=== PATIENT | female | born 1950 | race Hispanic/Latino ===

== ENCOUNTER 2018-03-09 07:30 | Day surgery (SDC) | payer OTHER ==
[~2018-03-09] VITALS: Ht 152.4 cm; Wt 58.1 kg
[~2018-03-09 07:30] MED LIST: ALPR0.255 PO; CARB-38 PO; ENTA200T5 PO; GABA-529 PO; PARO-37 PO; PRAV80TA21 PO; ROPI1TAB11 PO; SODIUM CHLORIDE 0.9% 1000ML 1,000 ML IV ONE; diclofenac gel; metoprolol PO
[2018-03-09 07:46] VITALS: BP 169/103
[2018-03-09] MEDS ORDERED: CARB-38 PO (08:24)
[2018-03-09] MEDS ORDERED: TEMA30CA5 PO (08:24)
[2018-03-09] MEDS ORDERED: LOSA50TA25 PO (08:24)
[2018-03-09] MEDS ORDERED: WHEA1POW2 PO (08:24)
[2018-03-09] MEDS ORDERED: METO50TA18 PO (08:24)
[2018-03-09] MEDS ORDERED: BUSP10TA3 PO (08:24)
[2018-03-09] MEDS ORDERED: ROPI1TAB38 PO (08:24)
[2018-03-09] MEDS ORDERED: AMAN100C12 PO (08:24)
[2018-03-09] MEDS ORDERED: PROPOFOL 10 MG/ML 20ML VIAL IV ONE (08:34)
[2018-03-09 08:49] VITALS: BP 118/72
[2018-03-09 08:54] VITALS: BP 120/74
[2018-03-09 08:59] VITALS: BP 118/82
[2018-03-09 09:09] VITALS: BP 173/94
[2018-03-09 09:14] VITALS: BP 174/86
== END 2018-03-09 09:25 | disposition home or self-care (01) ==
LOC: ENDO 07:30 → DAH 07:30 → ENDO 09:25
PROVIDERS: ATTEND Internal Medicine
DX: K31.89 Other diseases of stomach and duodenum (principal); K44.9 Diaphragmatic hernia without obstruction or gangrene; I10 Essential (primary) hypertension; E78.5 Hyperlipidemia, unspecified; F41.9 Anxiety disorder, unspecified; F32.9 Major depressive disorder, single episode, unspecified; Z79.899 Other long term (current) drug therapy; K21.9 Gastro-esophageal reflux disease without esophagitis; G20 Parkinson's disease
CPT/HCPCS: 43237; 93005; A4606; J2704; J7030; 43231

== ENCOUNTER 2018-09-28 06:34 | Day surgery (SDC) | payer OTHER, MEDICARE ==
[~2018-09-28] VITALS: Ht 152.4 cm; Wt 54.4 kg
[~2018-09-28 06:34] MED LIST changes: -ALPR0.255 PO; +AMAN100C12 PO; +BUSP10TA3 PO; -GABA-529 PO; +LOSA50TA64 PO; +METO50TA18 PO; -PARO-37 PO; -ROPI1TAB11 PO; +ROPI1TAB38 PO; +TEMA30CA5 PO; +WHEA1POW2 PO; -diclofenac gel; -metoprolol PO
[2018-09-28 07:33] VITALS: BP 203/106
[2018-09-28] MEDS ORDERED: CARB1TAB41 PO (07:42)
[2018-09-28] MEDS ORDERED: ALPR0.255 PO (07:53)
[2018-09-28] MEDS ORDERED: BISA5TAB12 PO (07:53)
[2018-09-28] MEDS ORDERED: ROPI1TAB11 PO (07:53)
[2018-09-28] MEDS ORDERED: OMEP40CA37 PO (07:53)
[2018-09-28] MEDS ORDERED: CARB-38 PO (07:53)
[2018-09-28] MEDS ORDERED: TRAZ-185 PO (07:53)
[2018-09-28] MEDS ORDERED: LOSA50TA64 PO (07:55)
[2018-09-28] MEDS ORDERED: ESCI5TAB10 PO (07:55)
[2018-09-28] MEDS ORDERED: BUSP5TAB3 PO (07:55)
[2018-09-28] MEDS ORDERED: LIDOCAINE HCL 2% 20ML ONE (08:18)
[2018-09-28] MEDS ORDERED: PROPOFOL 10 MG/ML 20ML VIAL IV ONE (08:18)
[2018-09-28 08:39] VITALS: BP 88/60
[2018-09-28 08:40] VITALS: BP 96/60
[2018-09-28 08:45] VITALS: BP 104/76
[2018-09-28 08:54] VITALS: BP 149/83
[2018-09-28 09:00] VITALS: BP 163/85
== END 2018-09-28 09:25 | disposition home or self-care (01) ==
LOC: ENDO 06:34 → DAH 06:34 → ENDO 09:25
PROVIDERS: ATTEND Internal Medicine Gastroenterology
DX: K29.70 Gastritis, unspecified, without bleeding (principal); K86.89 Other specified diseases of pancreas; K31.89 Other diseases of stomach and duodenum; F32.9 Major depressive disorder, single episode, unspecified; I10 Essential (primary) hypertension; K21.9 Gastro-esophageal reflux disease without esophagitis; G20 Parkinson's disease; Z79.899 Other long term (current) drug therapy; E78.5 Hyperlipidemia, unspecified; Z98.890 Other specified postprocedural states; K59.04 Chronic idiopathic constipation; Z86.010 Personal history of colon polyps
CPT/HCPCS: 43259; 93005; A4606; J2704; J3490; J7030; 43232